=== PATIENT | male | born 1955 | race Caucasian/White ===

== ENCOUNTER → 2017-02-17 | Outpatient (CLI) | payer OTHER ==
[~2017-02-17] MED LIST: GADOBUTROL 10 ML VIAL IVP ONE
== END ==
LOC: FIMAGING 07:53
PROVIDERS: ATTEND Specialist
DX: Z85.46 Personal history of malignant neoplasm of prostate (principal); K57.30 Diverticulosis of large intestine without perforation or abscess without bleeding
CPT/HCPCS: A9585

== ENCOUNTER 2018-02-11 19:03 | Emergency (ER) | payer OTHER ==
--- NOTE | 2018-02-11 19:32 | EDPHY ---
H & P Time Seen by Provider: 02/11/18 19:29 HPI/ROS: CHIEF COMPLAINT: Visual changes HISTORY OF PRESENT ILLNESS: The patient is a 62 y/o male complaining of changes in his visual field, onset last night. As he was driving home last night, he began to see rain dripping inside the car out of his right eye, but further inspection revealed there was not water inside the car. Today, he turned his head and looked to the right while driving and saw a lot of floaters in the right visual field of the right eye. He reports some possible dull spots in his vision. He denies diplopia, headache, changes in peripheral vision, or any other associated symptoms. Past Medical/Surgical History: Denies Social History: Lives in [place], , retired Smoking Status: Never smoked Physical Exam: Visual Acuity: noted from Nurse's notes, 20/20 bilaterally. Lids: no proptosis, no periorbital erythema or swelling, no vesicles Conjunctivae: No erythema, no discharge Pupils: equal round and reactive to light EOMI Cornea: Normal Anterior chamber: Clear, no hyphema Constitutional: Initial Vital Signs Temperature (C) 36.5 C 02/11/18 19:06 Heart Rate 82 02/11/18 19:06 Respiratory Rate 16 02/11/18 19:06 O2 Sat (%) 91 L 02/11/18 19:06 O2 Delivery Mode Room Air Allergies/Adverse Reactions: No Known Allergies Allergy (Unverified 02/11/18 19:05) Home Medications: Medication Instructions Recorded Atorvastatin Calcium 02/11/18 Lisinopril 02/11/18 Medical Decision Making ED Course/Re-evaluation: The patient presents with visual changes, onset last night. He had one episode of seeing raindrops inside his car that turned out to not be there. This afternoon, her noticed floaters in his right eye with turning his head. He denies any diplopia, peripheral vision changes, or headache. His exam is normal. Acuity is 20/[address] Stephen consulted. He will follow up with Dr. Stephen in the morning. Follow-up instructions and return precautions given. The patient agrees to this course of action. Differential Diagnosis: Differential diagnosis includes hyphema, acute iritis, traumatic mydriasis, corneal abrasion, globe rupture. Departure - Departure Disposition: Home, Routine, Self-Care Clinical Impression: Vitreous floaters of right eye Condition: Good Instructions: Visual Floaters (ED) Additional Instructions: 1. You have an appointment with Dr. Setphen, cartridge feeder, at 8:30 AM tomorrow morning. Please go to his office for your appointment. 2. Return to the emergency department for any worsening of condition. Referrals: Shree Bhatti MD [Primary Care Provider] - As per Instructions Floyd Stephen MD [Medical Doctor] - As per Instructions Report Scribed for: Sofy Archuleta Report Scribed by: Татьяна Perales Date of Report: 02/11/18 Time of Report: 19:32 Physician Review and Approval Statement: 02/11/18 19:32 Portions of this note were transcribed by a medical record technician. I personally performed a history, physical exam, medical decision making, and confirmed accuracy of information the transcribed note.
[2018-02-11 20:45] VITALS: BP 134/85; PULSE 86; RESP 18; TEMP 97.5; O2SAT 95
== END 2018-02-11 20:47 | disposition home or self-care (01) ==
DX: H43.391 Other vitreous opacities, right eye (principal)